=== PATIENT | male | born 1975 | race Caucasian/White ===

== ENCOUNTER 2016-10-14 08:36 | Emergency (ER) | payer OTHER ==
[~2016-10-14] VITALS: Ht 177.8 cm; Wt 105.9 kg
[2016-10-14 09:15] LABS: MCH 28.8 PG (29.0-34.0); MCHC 35.1 G/DL (30.0-36.0); MCV 82.1 FL (86-99); MEAN PLAT.VOLUME 9.1 uM^3 (9.0-12.4); PLATELET COUNT 251 K/uL (156-360); RBC DIS.WIDTH-CV 12.4 % (11.8-14.6); RBC DIS.WIDTH-SD 36.9 % (39-53); RED BLOOD COUNT 5.48 M/uL (4.00-5.50)
[2016-10-14 09:24] LABS: CHLORIDE 105 mEq/L (99-109); POTASSIUM 3.8 mEq/L (3.7-5.4); SODIUM 139 mEq/L (136-147)
[2016-10-14 09:25] LABS: GLUCOSE 104 mg/dL (70-99)
[2016-10-14 09:27] LABS: ANION GAP 11 MEQ/L (2-14)
[2016-10-14 09:29] LABS: GFR ESTIMATE (CALCULATED) > 59 mL/min/
[2016-10-14 09:30] LABS: UREA NITROGEN (BUN) 18 mg/dL (9-23)
[2016-10-14 09:35] LABS: TROP-I INTERPRETATION NEGATIVE; TROPONIN-I < 0.01 ng/mL (0.0-0.30)
[2016-10-14 11:34] LABS: ADD MIUA? NO; BILIRUBIN NEGATIVE; BLOOD NEGATIVE; COLOR YELLOW ((YELLOW)); GLUCOSE (STRIP) NEGATIVE; KETONES NEGATIVE; LEUKOCYTES NEGATIVE; NITRITE NEGATIVE; PROTEIN (STRIP) NEGATIVE; SPECIFIC GRAVITY 1.016 (1.000-1.030); UCUL ADDED? NO; UROBILINOGEN 0.2 MG/DL (0.2-1.0)
[2016-10-14 11:43] LABS: AMPHETAMINE NEGATIVE (500 ng/mL); BARBITURATES NEGATIVE (200 ng/mL); BENZODIAZEPINES NEGATIVE (150 ng/mL); COCAINE NEGATIVE (150 ng/mL); INTERNAL CONTROLS VALID? YES; METHADONE NEGATIVE (200 ng/mL); METHAMPHETAMINE NEGATIVE (500 ng/mL); OPIATES (MORPHINE) NEGATIVE (100 ng/mL); OXYCODONE NEGATIVE (100 ng/mL); PHENCYCLIDINE NEGATIVE (25 ng/mL); PROPOXYPHENE NEGATIVE (300 ng/mL); THC CANNABINOIDS NEGATIVE (50 ng/mL); TRICYCLIC ANTIDEPRESSANTS NEGATIVE (300 ng/mL)
[2016-10-14 12:57] VITALS: BP 154/74
== END 2016-10-14 12:58 | disposition home or self-care (01) ==
LOC: EME 08:36
PROVIDERS: Emergency Medicine
DX: T18.108A Unspecified foreign body in esophagus causing other injury, initial encounter (principal); X58.XXXA Exposure to other specified factors, initial encounter
CPT/HCPCS: 71020; 80048; 81003; 84484; 85027; 93005; 99281; 99284; J2405; J7030

== ENCOUNTER 2017-07-11 08:06 | Emergency (ER) | payer OTHER ==
[~2017-07-11] VITALS: Ht 177.8 cm; Wt 104.9 kg
[2017-07-11 09:02] LABS: MCHC 34.4 G/DL (30.0-36.0); MCV 84.1 FL (86-99); MEAN PLAT.VOLUME 8.6 uM^3 (9.0-12.4); PLATELET COUNT 219 K/uL (156-360); RBC DIS.WIDTH-SD 36.4 % (39-53); RED BLOOD COUNT 5.35 M/uL (4.00-5.50); WHITE BLOOD COUNT 5.2 K/uL (4.1-10.2)
[2017-07-11 09:18] LABS: ADD MIUA? NO; BILIRUBIN NEGATIVE; BLOOD NEGATIVE; COLOR YELLOW ((YELLOW)); GLUCOSE (STRIP) NEGATIVE; KETONES NEGATIVE; LEUKOCYTES NEGATIVE; NITRITE NEGATIVE; PROTEIN (STRIP) NEGATIVE; SPECIFIC GRAVITY 1.021 (1.000-1.030); UCUL ADDED? NO; UROBILINOGEN 0.2 MG/DL (0.2-1.0)
[2017-07-11 09:22] LABS: CHLORIDE 106 mEq/L (99-109); POTASSIUM 3.9 mEq/L (3.7-5.4); SODIUM 137 mEq/L (136-147)
[2017-07-11 09:24] LABS: GLUCOSE 100 mg/dL (70-99)
[2017-07-11 09:26] LABS: ANION GAP 6 MEQ/L (2-14); TOTAL BILIRUBIN 0.9 mg/dL (0.0-1.0)
[2017-07-11 09:28] LABS: ALKALINE PHOSPHATASE 47 IU/L (3-129); GFR ESTIMATE (CALCULATED) > 59 mL/min/
[2017-07-11 09:29] LABS: UREA NITROGEN (BUN) 17 mg/dL (9-23)
[2017-07-11 09:31] LABS: LIPASE 23 U/L (1.0-51.0)
[2017-07-11] MEDS ORDERED: FLAGYL500 MG PO (11:27)
[2017-07-11] MEDS ORDERED: CIPRO500 MG PO (11:27)
[2017-07-11 12:29] VITALS: BP 141/75
== END 2017-07-11 12:30 | disposition home or self-care (01) ==
LOC: EME 08:06
PROVIDERS: Emergency Medicine
DX: K52.9 Noninfective gastroenteritis and colitis, unspecified (principal)
CPT/HCPCS: 74177; 80053; 81003; 83690; 85027; 87177; 99281; 99285